=== PATIENT | male | born 1955 | race Two or more races ===

== ENCOUNTER 2022-11-08 22:33 | Emergency (ER) | payer MEDICARE, OTHER ==
[~2022-11-08] VITALS: Ht 157.5 cm; Wt 144.0 kg
[2022-11-08 22:36] VITALS: TEMP 98.7
[2022-11-08] MEDS ORDERED: ATOR10TA PO (22:46)
[2022-11-08] MEDS ORDERED: CHOL500043 PO (22:46)
[2022-11-08] MEDS ORDERED: METF-1211 PO (22:46)
[2022-11-08] MEDS ORDERED: EMPA10TA3 PO (22:46)
[2022-11-09] MEDS ORDERED: PERTUSS(ACELL),DIPH,TET VAC/PF 0.5 ML SYRINGE IM. ONE (00:45)
[2022-11-09 02:00] VITALS: BP 138/82; PULSE 70; RESP 14
== END 2022-11-09 03:14 | disposition home or self-care (01) ==
LOC: EMS 22:33
DX: S61.012A Laceration without foreign body of left thumb without damage to nail, initial encounter (principal); I10 Essential (primary) hypertension; E11.9 Type 2 diabetes mellitus without complications; E78.00 Pure hypercholesterolemia, unspecified; Z79.84 Long term (current) use of oral hypoglycemic drugs; Z79.899 Other long term (current) drug therapy; W45.8XXA Other foreign body or object entering through skin, initial encounter; Y93.89 Activity, other specified; Y92.89 Other specified places as the place of occurrence of the external cause; Y99.8 Other external cause status
CPT/HCPCS: 12001; 82962; 90471; 90715; 99283